=== PATIENT | male | born 1975 | race African-American/Black ===

== ENCOUNTER 2017-09-01 12:39 | Emergency (ER) | payer OTHER ==
[2017-09-01 12:42] VITALS: BP 132/89; PULSE 67; TEMP 98; BMI 24.3
--- NOTE | 2017-09-01 14:04 | PDOC ---
History of Present Illness - General History Source: Patient Exam Limitations: No Limitations - History of Present Illness Initial Comments: 09/01/17 14:14 The patient is a 42 year old right-hand dominant male with no significant PMH who presents to the emergency department with right-shoulder pain beginning approximately yesterday. He describes the pain as localized in the anterior region and is aggravated by movement. 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 The patient denies chest pain, shortness of breath, headache and dizziness. Allergies: NKA Social history: Denies family history of heart disease. No reported toxic habits. PCP: Dr. Ovalle <Alfie De Leon - Last Filed: 09/01/17 14:13> - General History Source: Patient Exam Limitations: No Limitations <Donna So - Last Filed: 09/01/17 15:09> - General Chief Complaint: Pain Stated Complaint: SHOULDER PAIN Time Seen by Provider: 09/01/17 13:50 Past History <Alfie De Leon - Last Filed: 09/01/17 14:13> - Past Medical History Other medical history: denies - Suicide/Smoking/Psychosocial Hx Smoking History: Never smoked Information on smoking cessation initiated: No Hx Alcohol Use: No Drug/Substance Use Hx: No Substance Use Type: None <Donna So - Last Filed: 09/01/17 15:09> - Past Medical History Allergies/Adverse Reactions: Allergies Allergy/AdvReac Type Severity Reaction Status Date / Time No Known Allergies Allergy Verified 09/01/17 12:42 Home Medications: Ambulatory Orders Naproxen [Naprosyn -] 500 mg PO BID #28 tablet 09/01/17 Review of Systems - Review of Systems Able to Perform ROS?: Yes Comments:: 09/01/17 14:14 GENERAL/CONSTITUTIONAL: No fever or chills. No weakness. CARDIOVASCULAR: No chest pain or shortness of breath. MUSCULOSKELETAL: (+) Anterior right shoulder pain. No neck or back pain. SKIN: No rash NEUROLOGIC: No headache, vertigo, loss of consciousness, or change in strength/ sensation. <Alfie De Leon - Last Filed: 09/01/17 14:13> *Physical Exam - Vital Signs Last Vital Signs Temp Pulse Resp BP Pulse Ox 98 F 67 17 132/89 100 09/01/17 12:41 09/01/17 12:41 09/01/17 12:41 09/01/17 12:41 09/01/17 12:41 - Physical Exam Comments: 09/01/17 14:14 GENERAL: Awake, alert, and fully oriented, in no acute distress HEAD: No signs of trauma NECK: Normal ROM, supple, no lymphadenopathy, JVD, or masses HEART: Regular rate and rhythm, normal S1 and S2, no murmurs, rubs or gallops EXTREMITIES: (+) Pain on palpation to subacromial & subdeltoid bursae. (+) Pain on active abduction. (+) Positive impingement sign. Decreased range of motion, no edema. No clubbing or cyanosis. No cords or erythema. NEUROLOGICAL: Cranial nerves II through XII grossly intact. Normal speech, normal gait <Alfie De Leon - Last Filed: 09/01/17 14:13> - Vital Signs Last Vital Signs Temp Pulse Resp BP Pulse Ox 98 F 67 17 132/89 100 09/01/17 12:41 09/01/17 12:41 09/01/17 12:41 09/01/17 12:41 09/01/17 12:41 <Donna So - Last Filed: 09/01/17 15:09> Medical Decision Making - Medical Decision Making 09/01/17 15:06 A/P: Patient here for evaluation of pain to right shoulder, clinical findings are indicative of a bursitis. Patient denies description of any injury that may have caused a rotator cuff tear however patient with positive impingement sign. X-rays negative for acute fracture dislocation or separation. Arm sling placed on, Naprosyn given for pain, will discharge patient on anti- inflammatories with strict instructions to follow-up with orthopedics. I discussed the physical exam findings, ancillary test results and final diagnoses with the patient. I answered all of the patient's questions. The patient was satisfied with the care received and felt comfortable with the discharge plan and treatment plan. The patient will call tomorrow to arrange follow-up and will return to the Emergency Department with any new, persistent or worsening symptoms. <Donna So - Last Filed: 09/01/17 15:09> *DC/Admit/Observation/Transfer - Attestations Scribe Attestion: 09/01/17 14:14 Documentation prepared by Alfie De Leon, acting as medical staffing coordinator for Donna So FNP. <Alfie De Leon - Last Filed: 09/01/17 14:13> - Discharge Dispostion Admit: No <Donna So - Last Filed: 09/01/17 15:09> Diagnosis at time of Disposition: Tendinitis Shoulder pain Qualifiers: Chronicity: acute Laterality: right Qualified Code(s): M25.511 - Pain in right shoulder; M25.511 - Pain in right shoulder - Discharge Dispostion Disposition: HOME Condition at time of disposition: Good - Prescriptions Prescriptions: Naproxen [Naprosyn -] 500 mg PO BID #28 tablet - Referrals Referrals: Bradley Ovalle [Primary Care Provider] - - Patient Instructions Printed Discharge Instructions: Shoulder Tendinopathy Additional Instructions: 1. Please return to the emergency department with any redness, swelling, increased pain, or any other concerns. 2. Keep arm sling on 3. Please follow up in the office of Dr. Tapia within a week if pain persists. 4. No weightbearing 5. Ice and elevate when at rest. 6. Naprosyn for pain - Post Discharge Activity Forms/Work/School Notes: Back to Work
[2017-09-01] MEDS ORDERED: NAPROXEN 500 MG TABLET (FP) PO ONE (15:07)
[2017-09-01] MEDS ORDERED: NAPROXEN 500 MG TABLET (FP) ONE (15:10)
== END 2017-09-01 15:13 | disposition home or self-care (01) ==
LOC: JERFT 12:39
DX: M75.41 Impingement syndrome of right shoulder (principal)
CPT/HCPCS: 73030-TC-RT; 99281-25

== ENCOUNTER 2018-10-17 12:36 | Emergency (ER) | payer OTHER ==
[2018-10-17 12:48] VITALS: BP 130/79; PULSE 74; TEMP 98.5; BMI 25.0
--- NOTE | 2018-10-17 13:42 | PDOC ---
History of Present Illness - General Chief Complaint: Chest Pain Stated Complaint: CHEST PAIN Time Seen by Provider: 10/17/18 13:12 History Source: Patient Exam Limitations: Clinical Condition - History of Present Illness Initial Comments: 10/17/18 13:36 Patient with no significant past medical history present with complaint of 2 weeks history of intermittent chest pain which moved to different part of left side of the chest and had midsternal chest pain this morning. Patient reported pain as 1 out of 10 localized to lower mid chest area. Patient reported no pain now. Patient came to ED today because chest pain has been intermittent for 2 weeks and wants to know why he has been swelling to chest pain. Patient denies nausea, vomiting, radiation of pain, numbness or tingling sensation, headache, dizziness, sweats. Patient denies any other symptoms 10/17/18 13:39 Timing/Duration: other (2 weeks) Past History - Past Medical History Allergies/Adverse Reactions: Allergies Allergy/AdvReac Type Severity Reaction Status Date / Time No Known Allergies Allergy Verified 10/17/18 12:44 Home Medications: Ambulatory Orders Naproxen [Naprosyn -] 500 mg PO BID #28 tablet 09/01/17 COPD: No - Suicide/Smoking/Psychosocial Hx Smoking History: Never smoked Hx Alcohol Use: No Drug/Substance Use Hx: No Substance Use Type: None Review of Systems - Review of Systems Able to Perform ROS?: Yes Is the patient limited Barbadian proficient: No Constitutional: No: Chills, Fever, Malaise, Weakness HEENTM: No: Symptoms Reported, See HPI, Eye Pain, Blurred Vision, Tearing, Recent change in vision, Double Vision, Cataracts, Ear Pain, Ocular Prothesis, Ear Discharge, Nose Pain, Nose Congestion, Tinnitus, Nose Bleeding, Hearing Loss , Throat Pain, Throat Swelling, Mouth Pain, Dental Problems, Difficulty Swallowing, Mouth Swelling, Other Respiratory: No: Symptoms reported, See HPI, Cough, Orthopnea, Shortness of Breath, SOB with Exertion, SOB at Rest, Stridor, Wheezing, Productive cough, Hemoptysis, Other Cardiac (ROS): Yes: Symptoms Reported, See HPI, Chest Pain (mild mid-sternum). No: Edema, Irregular Heart Rate, Lightheadedness, Palpitations, Syncope, Chest Tightness, Other ABD/GI: No: Nausea, Vomiting Neurological: No: Symptoms reported, See HPI, Headache, Numbness, Paresthesia, Pre-Existing Deficit, Seizure, Tingling, Tremors, Weakness, Unsteady Gait, Ataxia, Dizziness, Other All Other Systems: Reviewed and Negative *Physical Exam - Vital Signs Last Vital Signs Temp Pulse Resp BP Pulse Ox 98.5 F 74 18 130/79 99 10/17/18 12:46 10/17/18 12:46 10/17/18 12:46 10/17/18 12:46 10/17/18 12:46 - Physical Exam Comments: 10/17/18 13:39 GENERAL: Well developed, well nourished. Awake and alert. No acute distress. HEENT: Normocephalic, atraumatic. PERRLA, EOMI. No conjunctival pallor. Sclera are non- icteric. Moist mucous membranes. Oropharynx is clear. NECK: Supple. Full ROM. No JVD. Carotid pulses 2+ and symmetric, without bruits. No thyromegaly. No lymphadenopathy. CARDIOVASCULAR: Regular rate and rhythm. No murmurs, rubs, or gallops. Distal pulses are 2+ and symmetric. PULMONARY: No evidence of respiratory distress. Lungs clear to auscultation bilaterally. No wheezing, rales or rhonchi. ABDOMINAL: Soft. Non-tender. Non-distended. No rebound or guarding. No organomegaly. Normoactive bowel sounds. MUSCULOSKELETAL Normal range of motion at all joints. No bony deformities or tenderness. No CVA tenderness. EXTREMITIES: No cyanosis. No clubbing. No edema. No calf tenderness. SKIN: Warm and dry. Normal capillary refill. No rashes. No jaundice. NEUROLOGICAL: Alert, awake, appropriate. Cranial nerves 2-12 grossly intact. . Gait is normal without ataxia. PSYCHIATRIC: Cooperative. Good eye contact. Appropriate mood and affect. General Appearance: Yes: Nourished, Appropriately Dressed. No: Apparent Distress Moderate Sedation - Procedure Monitoring Vital Signs: Procedure Monitoring Vital Signs Temperature 98.5 F 10/17/18 12:46 Pulse Rate 74 10/17/18 12:46 Respiratory Rate 18 10/17/18 12:46 Blood Pressure 130/79 10/17/18 12:46 O2 Sat by Pulse Oximetry (%) 99 10/17/18 12:46 ED Treatment Course - LABORATORY CBC & Chemistry Diagram: 10/17/18 13:23 10/17/18 13:23 - RADIOLOGY Radiology Studies Ordered: Category Date Time Status CHEST PA & LAT [RAD] Stat Radiology 10/17/18 13:23 Ordered Medical Decision Making - Medical Decision Making 10/17/18 13:40 Patient with no significant past medication present with complaint of 2 weeks history of intermittent left-sided chest pain on different locations of left side chest with no other symptoms. Clinical exam unremarkable with no pain or clinical finding on exam. EKG shows normal sinus rhythm with nonspecific ST changes. CBC, CMP, cardiac profile and chest x-ray ordered. Treat based on lab and imaging results 10/17/18 17:19 CBC,CMP and cardiac lab negative. x-rays showed no acute pathology. patient still asymptomatic now. rpt 3 hrs cardiac profile pending. will discharge home with cardiology follow-up if negative rpt troponins 10/17/18 18:06 repeat troponins negative. pt stable for discharge with cardiology follow-up *DC/Admit/Observation/Transfer Diagnosis at time of Disposition: Costochondral chest pain - Discharge Dispostion Disposition: HOME Condition at time of disposition: Stable Decision to Admit order: No - Referrals Referrals: Bradley Ovalle [Primary Care Provider] - Mario Weston MD [Staff Physician] - - Patient Instructions Printed Discharge Instructions: DI for Atypical Chest Pain Additional Instructions: take motrin as needed for pain. come back to ER if worsening chest pains, dizziness, shortness of breathe, headache with nausea and vomiting. 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
[2018-10-17 14:32] LABS: BASO % 0.7 % (0-2.0); EOS % 0.9 % (0-4.5); HEMATOCRIT 43.1 % (35.4-49); HEMOGLOBIN 14.2 GM/dL (11.7-16.9); LYMPH % 33.6 % (8-40); MCH 29.6 pg (25.7-33.7); MCHC 32.9 g/dl (32.0-35.9); MEAN CELL VOLUME 89.9 fl (80-96); MEAN PLT VOLUME 7.9 fl (7.5-11.1); MONO % 12.4 % (3.8-10.2); NEUT % 52.4 % (42.8-82.8); PLATELET COUNT 252 K/MM3 (134-434); RBC 4.79 M/mm3 (4.00-5.60); RDW 13.2 % (11.9-15.9); WHITE BLOOD COUNT 3.6 K/mm3 (4.0-10.0)
[2018-10-17 14:53] LABS: ALBUMIN 4.3 g/dl (3.4-5.0); ALK PHOS 65 U/L (45-117); ANION GAP 8 MMOL/L (8-16); BILIRUBIN,TOTAL 0.6 mg/dL (0.2-1); BLOOD UREA NITROGEN 11 mg/dL (7-18); CALCIUM 8.8 mg/dL (8.5-10.1); CHLORIDE 104 mmol/L (98-107); CO2 28 mmol/L (21-32); GLUCOSE,RANDOM 76 mg/dL (74-106); POTASSIUM 3.8 mmol/L (3.5-5.1); SGOT/AST 17 U/L (15-37); SGPT/ALT 24 U/L (13-61); SODIUM 140 mmol/L (136-145); TOT PROT 7.6 g/dl (6.4-8.2)
--- NOTE | 2018-10-18 09:25 | EKG ---
Test Reason : Blood Pressure : / mmHG Vent. Rate : 060 BPM Atrial Rate : 060 BPM P-R Int : 194 ms QRS Dur : 102 ms QT Int : 382 ms P-R-T Axes : 041 064 041 degrees QTc Int : 382 ms NORMAL SINUS RHYTHM MINIMAL VOLTAGE CRITERIA FOR LVH, MAY BE NORMAL VARIANT NONSPECIFIC ST AND T WAVE ABNORMALITY ABNORMAL ECG NO PREVIOUS ECGS AVAILABLE Confirmed by VITA SCHMIDT, HUGO ([id number]) on 10/18/2018 9:24:59 AM Referred By: Confirmed By:HUGO GORMAN MD
== END 2018-10-17 18:10 | disposition home or self-care (01) ==
LOC: JER 12:36
DX: M94.0 Chondrocostal junction syndrome [Tietze] (principal)
CPT/HCPCS: 36415; 71046-TC-FY; 80053; 82550; 82553; 84484; 85025; 93005; 93010; 99282-25

== ENCOUNTER 2019-07-06 00:18 | Emergency (ER) | payer OTHER ==
--- NOTE | 2019-07-06 00:44 | PDOC ---
History of Present Illness <Maritza Castellanos - Last Filed: 07/06/19 01:19> - General History Source: Patient - History of Present Illness Initial Comments: 07/06/19 02:27 44 year old male c/o foreign body ( chicken bone ) stuck in throat. patient reports accidentally eating it with rice. patient with no respiratory distress or drooling. c/o feeling something stuck in throat <Collette Caban - Last Filed: 07/06/19 07:01> - General Chief Complaint: Foreign Body (FB) Stated Complaint: BONE STUCK IN THROAT Time Seen by Provider: 07/06/19 00:40 Past History <Maritza Castellanos - Last Filed: 07/06/19 01:19> - Past Medical History COPD: No - Suicide/Smoking/Psychosocial Hx Smoking History: Never smoked Hx Alcohol Use: No Drug/Substance Use Hx: No Substance Use Type: None <Collette Caban - Last Filed: 07/06/19 07:01> - Past Medical History Allergies/Adverse Reactions: Allergies Allergy/AdvReac Type Severity Reaction Status Date / Time No Known Allergies Allergy Verified 07/06/19 01:08 Home Medications: Ambulatory Orders Naproxen [Naprosyn -] 500 mg PO BID #28 tablet 09/01/17 Review of Systems - Review of Systems Able to Perform ROS?: Yes Is the patient limited Turkish proficient: No Constitutional: No: Symptoms Reported, See HPI, Chills, Diaphoresis, Fever, Loss of Appetite, Malaise, Night Sweats, Weakness, Weight Stable, Unintentional Wgt. Loss, Unexplained wgt Loss, Other HEENTM: Yes: Throat Pain, Difficulty Swallowing Respiratory: No: Symptoms reported, See HPI, Cough, Orthopnea, Shortness of Breath, SOB with Exertion, SOB at Rest, Stridor, Wheezing, Productive cough, Hemoptysis, Other <Collette Caban - Last Filed: 07/06/19 07:01> *Physical Exam - Vital Signs Last Vital Signs Temp Pulse Resp BP Pulse Ox 97.9 F 81 16 130/72 100 07/06/19 00:57 07/06/19 00:57 07/06/19 00:57 07/06/19 00:57 07/06/19 00:57 <Maritza Castellanos - Last Filed: 07/06/19 01:19> - Physical Exam General Appearance: Yes: Appropriately Dressed HEENT: positive: Other (pharyngeal erythema) Respiratory/Chest: positive: Lungs Clear, Normal Breath Sounds Cardiovascular: positive: Regular Rhythm, Regular Rate Gastrointestinal/Abdominal: positive: Normal Bowel Sounds, Soft. negative: Tender Integumentary: positive: Normal Color, Dry, Warm Neurologic: positive: Fully Oriented, Alert, Normal Mood/Affect <Collette Caban - Last Filed: 07/06/19 07:01> ED Treatment Course - LABORATORY CBC & Chemistry Diagram: 07/06/19 03:20 07/06/19 03:20 <Collette Caban - Last Filed: 07/06/19 07:01> Medical Decision Making - Medical Decision Making 07/06/19 01:19 The patient was seen and evaluated in conjunction with midlevel provider under my direct supervision, ancillary studies were reviewed. I agree with the plan as outlined CLARK Caban. HPI, workup/dispo as outlined. VS reviewed, wnl. impacted chicken bone, soft tissue neck xray GI for removal. npo. <Maritza Castellanos - Last Filed: 07/06/19 01:19> - Medical Decision Making A: foreign body in throat P: preop labs XRay 07/06/19 02:[address] Quesada. recommends preop labs. pending OR for foreign body removal 07/06/19 07:00 patient signed out to Aric RODAS. pending OR <Collette Caban - Last Filed: 07/06/19 07:01> *DC/Admit/Observation/Transfer <Maritza Castellanos - Last Filed: 07/06/19 01:19> <Collette Caban - Last Filed: 07/06/19 07:01> Diagnosis at time of Disposition: Foreign body alimentary tract Qualifiers: Encounter type: initial encounter Qualified Code(s): T18.9XXA - Foreign body of alimentary tract, part unspecified, initial encounter - Discharge Dispostion Condition at time of disposition: Fair - Referrals Referrals: Bradley Ovalle [Primary Care Provider] - - Patient Instructions - Post Discharge Activity
[2019-07-06 01:08] VITALS: BMI 25.8
[2019-07-06 03:57] LABS: BASO % 0.4 % (0-2.0); EOS % 2.2 % (0-4.5); HEMATOCRIT 40.1 % (35.4-49); HEMOGLOBIN 13.5 GM/dL (11.7-16.9); LYMPH % 30.9 % (8-40); MCH 30.4 pg (25.7-33.7); MCHC 33.7 g/dl (32.0-35.9); MEAN CELL VOLUME 90.3 fl (80-96); MEAN PLT VOLUME 7.7 fl (7.5-11.1); MONO % 12.3 % (3.8-10.2); NEUT % 54.2 % (42.8-82.8); PLATELET COUNT 239 K/MM3 (134-434); RBC 4.44 M/mm3 (4.00-5.60); RDW 13.6 % (11.9-15.9); WHITE BLOOD COUNT 3.6 K/mm3 (4.0-10.0)
[2019-07-06 04:12] LABS: ALBUMIN 3.7 g/dl (3.4-5.0); BILIRUBIN,TOTAL 0.5 mg/dL (0.2-1); BLOOD UREA NITROGEN 13.5 mg/dL (7-18); CALCIUM 8.9 mg/dL (8.5-10.1); POTASSIUM 3.8 mmol/L (3.5-5.1); TOT PROT 6.8 g/dl (6.4-8.2)
[2019-07-06 04:33] LABS: INR 1.01 (0.83-1.09); PROTHROMBIN TIME (PATIENT) 11.9 SEC (9.7-13.0)
[2019-07-06 05:42] VITALS: PULSE 60
[2019-07-06] MEDS ORDERED: SODIUM CHLORIDE 1,000 ML IV SCH (06:30)
--- NOTE | 2019-07-06 09:08 | PDOC ---
*Physical Exam - Vital Signs Last Vital Signs Temp Pulse Resp BP Pulse Ox 98.4 F 60 18 111/50 L 99 07/06/19 05:41 07/06/19 05:41 07/06/19 05:41 07/06/19 05:41 07/06/19 05:41 - Physical Exam General Appearance: Yes: Appropriately Dressed. No: Apparent Distress HEENT: positive: Normal Voice Neck: positive: Supple Respiratory/Chest: positive: Lungs Clear, Normal Breath Sounds. negative: Respiratory Distress, Stridor Cardiovascular: positive: Regular Rate, S1, S2 Gastrointestinal/Abdominal: positive: Normal Bowel Sounds, Soft. negative: Tender, Distended, Guarding, Rebound Integumentary: positive: Dry, Warm Neurologic: positive: Fully Oriented, Alert, Normal Mood/Affect ED Treatment Course - LABORATORY CBC & Chemistry Diagram: 07/06/19 03:20 07/06/19 03:20 - ADDITIONAL ORDERS Additional order review: Laboratory Results 07/06/19 07/06/19 07/06/19 03:20 03:20 03:20 PT with INR 11.90 INR 1.01 PTT (Actin FS) Sodium 140 Potassium 3.8 Chloride 106 Carbon Dioxide 28 Anion Gap 6 L BUN 13.5 Creatinine 1.0 Est GFR (CKD-EPI)AfAm 104.15 Est GFR (CKD-EPI)NonAf 89.86 Random Glucose 130 H Calcium 8.9 Total Bilirubin 0.5 AST 24 ALT 26 Alkaline Phosphatase 56 Total Protein 6.8 Albumin 3.7 Blood Type A POSITIVE Antibody Screen Negative 07/06/19 03:20 PT with INR INR PTT (Actin FS) 30.6 Sodium Potassium Chloride Carbon Dioxide Anion Gap BUN Creatinine Est GFR (CKD-EPI)AfAm Est GFR (CKD-EPI)NonAf Random Glucose Calcium Total Bilirubin AST ALT Alkaline Phosphatase Total Protein Albumin Blood Type Antibody Screen 07/06/19 03:20 RBC 4.44 MCV 90.3 MCHC 33.7 RDW 13.6 MPV 7.7 Neutrophils % 54.2 Lymphocytes % 30.9 Monocytes % 12.3 H Eosinophils % 2.2 D Basophils % 0.4 Medical Decision Making - Medical Decision Making 07/06/19 07:00 Pt out to me at 7 AM Pt is a 44-year-old male with no significant past medical history, here with foreign body sensation to neck after eating chicken bones. Soft tissue x-ray shows linear density at C6-C7 level, concerning for foreign body. Per prior team, Dr. Quesada is aware and patient to go to the OR at some point today to retrieve esophageal FB. Pre-op labs pending 07/06/19 09:[address] Gonzalez of GI recommending that we transfer patient out for procedure, since M.D. does not feel that we have the capabilities here to retrieve esophageal foreign body given no cardiothoracic supportive staff that could be on standby in the event of complications. Dr Coronel made aware 07/06/19 11:39 JULIANO Callahan at [facility], accepted transfer at this time. Pt to be ER to ER transfer via ACLS. Face sheet faxed and images sent over via PACs. 07/06/19 12:10 Spoke to ER MD, Dr Mojica who accepted pt. EMT currently at bedside. *DC/Admit/Observation/Transfer Diagnosis at time of Disposition: Foreign body alimentary tract Qualifiers: Encounter type: initial encounter Qualified Code(s): T18.9XXA - Foreign body of alimentary tract, part unspecified, initial encounter - Discharge Dispostion Disposition: TRANSFER ACUTE CARE/OTHER HOSP Condition at time of disposition: Fair - Referrals Referrals: Bradley Ovalle [Primary Care Provider] - - Patient Instructions - Post Discharge Activity
--- NOTE | 2019-07-06 09:28 | EKG ---
Test Reason : Blood Pressure : / mmHG Vent. Rate : 056 BPM Atrial Rate : 056 BPM P-R Int : 228 ms QRS Dur : 112 ms QT Int : 408 ms P-R-T Axes : 053 068 049 degrees QTc Int : 393 ms SINUS BRADYCARDIA WITH 1ST DEGREE A-V BLOCK MINIMAL VOLTAGE CRITERIA FOR LVH, MAY BE NORMAL VARIANT BORDERLINE ECG WHEN COMPARED WITH ECG OF 17-OCT-2018 12:48, [place] INTERVAL HAS INCREASED Confirmed by Sujit Delgado MD ([id number]) on 07/06/2019 9:27:44 AM Referred By: Confirmed By:Sujit Delgado MD
[2019-07-06] MEDS ORDERED: TETRACAINE/BENZOCAINE/BUTAMBEN 20 GM SPR TP ONE ×2 (11:03→11:17)
[2019-07-06] MEDS ORDERED: LIDOCAINE VISCOUS 2% ORAL/TOP 20 ML UNIT-DOSE CUP MM ONE (11:04)
[2019-07-06] MEDS ORDERED: LIDOCAINE VISCOUS 2% ORAL/TOP 20 ML UNIT-DOSE CUP ONE (11:08)
[2019-07-06 12:16] VITALS: BP 133/78; TEMP 98
== END 2019-07-06 12:16 | disposition short-term general hospital (02) ==
LOC: JER 00:18
DX: T18.8XXA Foreign body in other parts of alimentary tract, initial encounter (principal); X58.XXXA Exposure to other specified factors, initial encounter; Y93.89 Activity, other specified; Y99.8 Other external cause status; Y92.018 Other place in single-family (private) house as the place of occurrence of the external cause
CPT/HCPCS: 36415; 70360-TC-FY; 71046-TC-FY; 80053; 85025; 85610; 85730; 86850; 86900; 86901; 93005; 93010; 99285-25; J7030